=== PATIENT | male | born 1995 | race Caucasian/White ===

== ENCOUNTER 2024-03-09 23:57 | Emergency (ER) | payer SELFPAY ==
[2024-03-10] VITALS: BP 137/74; BMI 20.4
--- NOTE | 2024-03-10 02:11 | ED.GENMED ---
History of Present Illness
General
Chief Complaint: Psychiatric Problem
Source: patient
Time Seen by Provider: 03/10/24 02:00
Nursing documentation reviewed up to this point in time: agreed with
Travel History
Have you had any contact with someone who has COVID-19?: No
Do you have any symptoms of coronavirus? Fever > 100 degrees, chills, cough, shortness of breath, sore throat, loss of taste or smell, muscle aches, or headache?: No
History of Present Illness
History of Present Illness:
29-year-old male presents to the emergency department via police escort after making suicidal threats. Patient has no psych history other than ADHD. Patient placed a wager on a boxing match and lost $800. He states that there is his last $800.
He started to run around the house stating that he was going to harm himself. He told his family that he had several ways that he was going to hurt himself. According to the 302 petition, patient allegedly took off all his clothes and cut them up
and placed them around the house. Mom states that patient's behavior has been erratic lately. Patient has been cooperative.
Review of Systems
Review of Systems
Allergies reviewed?: Yes
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
All Other Systems: Not applicable
Constitutional: Reports no symptoms
EENT: Reports no symptoms
Respiratory: Reports no symptoms
Cardiac: Reports no symptoms
ABD/GI: Reports no symptoms
: Reports no symptoms
Musculoskeletal: Reports no symptoms
Skin: Reports no symptoms
Neurological: Reports no symptoms
Endocrine: Reports no symptoms
Hematologic/Lymphatic: Reports no symptoms
Psychiatric: Reports anxiety and suicidal
Phy Exam
General Physical Exam
General Presentation: well appearing and no apparent distress
General Skin: warm and dry
General Habitus: normal
General Mental: alert
General Hydration: appears well hydrated
ENT Exam
ENT Exam: EOMI, pharynx normal, neck supple and normocephalic
Eye Exam
Eye Exam: PERRL, cornea clear and conjunctiva normal
Cardiovascular Exam
Cardiovascular Exam: regular rate/rhythm, no edema, no murmur and normal peripheral pulses
Pulmonary Exam
Pulmonary Exam: lungs clear, no respiratory distress, no rales, no crackles, no rhonchi, no stridor, no wheezing and no cough
Gastrointestinal Exam
Gastrointestinal Exam: normal bowel sounds, non tender, soft, no organomegaly, no pulsatile mass and non distended
Neurological Exam
Neurological Exam: alert, oriented x3, no motor deficits and speech normal
Musculoskeletal Exam
Musculoskeletal Exam: full ROM and no edema
Skin Exam
Skin Exam: normal color, warm/dry, no rash and no petechia
Psychiatric Exam
Psychiatric Exam: normal mood/affect
Course
Vital Signs
Initial and Last Documented VS:
Initial Vital Signs
Temp Pulse Resp BP Pulse Ox
98.2 F 94 16 137/74 98
03/10/24 00:00 03/10/24 00:00 03/10/24 00:00 03/10/24 00:00 03/10/24 00:00
Last Documented Vital Signs
Temp Pulse Resp BP Pulse Ox
98.2 F 94 16 137/74 98
03/10/24 00:00 03/10/24 00:00 03/10/24 00:00 03/10/24 00:00 03/10/24 00:00
*Critical Care Note
Total Time (30-74mins, 75-104mins- exclusive of procedures): Not Applicable
ED Attending Note
-
Portions of this chart may have been created with voice recognition software.� Occasional wrong word or��sound alike� substitutions may have occurred due to the inherent limitations of voice recognition software.
Discharge Plan
Departure
Patient Disposition: [facility]
Date of Disposition: 03/10/24
Time of Disposition: 02:13
Discharge Problem:
Suicidal ideation
Prescriptions:
No Action
No Current Medications
0
Referrals:
[facility] [Active] -
NONE,* [Family Provider] -
Interventions
Interventions:
*Risk Screen - Suicide Last Done: 03/10/24 00:00
*General Assessment Last Done: 03/10/24 00:00
*Neglect/Abuse Screening Last Done: 03/10/24 00:00
ED- Fall Risk Assessment Last Done: 03/10/24 00:00
*ED COVID-19 Vaccine History Last Done: 03/10/24 00:00
ED-Psychological Assessment Last Done: 03/10/24 00:00
Discharge Date and Time
Print Language: ARMENIAN
== END 2024-03-10 05:32 ==
LOC: EMR 23:57
PROVIDERS: EMERGENCY PHYSICIAN Student in an Organized Health Care Education/Training Program
DX: R45.851 Suicidal ideations (principal); F90.9 Attention-deficit hyperactivity disorder, unspecified type
CPT/HCPCS: 99282